=== PATIENT | female | born 1995 | race African-American/Black ===

== ENCOUNTER 2019-04-30 11:10 | Inpatient (IN) ==
[2019-04-30] MEDS ORDERED: ONDANSETRON 4 MG/2 ML VIAL IV PRN (11:41)
[2019-04-30] MEDS ORDERED: MEPERIDINE 25 MG/1 ML VIAL IV PRN (11:41)
[2019-04-30] MEDS: LACTATED RINGERS 1,000 ML IV SCH ×3 (11:50→23:14)
[2019-04-30 12:04] LABS: Basophils % 0.3 % (0.0-0.8); Eosinophils % 0.6 % (0.00-10.9); Hematocrit 34.4 VOL% (35.7-47.0); Hemoglobin 10.3 GM/DL (12.0-16.0); Immature Granulocytes % 0.4 %; Immature Granulocytes Absolute 0.03 #; Lymphocytes # 1.8 10*3/uL (1.4-4.0); Lymphocytes % 26.3 % (21.3-54.2); Mean Corpuscular HGB Conc 29.9 GM/DL (32-36); Mean Platelet Volume 10.7 FL (9.6-12.0); Monocytes % 7.2 % (1.7-12.7); Neutrophils % 65.2 % (38.7-73.9); Platelet Count 287 T/CUMM (130-400); Red Blood Count 3.91 MC/CUMM (3.8-5.5); Red Cell Distribution Width 14.9 % (9.3-17.3)
[2019-04-30] MEDS: OXYTOCIN/LR 20 UNIT/1,000 ML BAG IV SCH (12:21)
[2019-04-30] MEDS: BUTORPHANOL 2 MG/ML VIAL IV PRN ×2 (15:25→18:05)
[2019-04-30] MEDS ORDERED: diphenhydrAMINE 50 MG/1 ML VIAL IV PRN (20:36)
[2019-04-30] MEDS ORDERED: NALOXONE 0.4 MG/ML VIAL IV PRN (20:36)
[2019-04-30] MEDS ORDERED: FAMOTIDINE 20 MG/2 ML VIAL IV ONE (20:36)
[2019-04-30] MEDS ORDERED: CITRIC ACID/SODIUM CITRATE 30 ML UDCUP PO ONE (20:36)
[2019-04-30] MEDS ORDERED: PROMETHAZINE 25 MG/1 ML VIAL IM ONE (20:36)
[2019-04-30] MEDS ORDERED: ePHEDrine 50 MG/ML AMP IV PRN (20:36)
[2019-04-30] MEDS ORDERED: fentaNYL 2 MCG/ROPIV 0.2% EPID 100 ML EPIDURAL ONE (20:43)
[2019-04-30] MEDS ORDERED: fentaNYL 2 MCG/ROPIV 0.2% EPID 100 ML EPIDURAL SCH (21:00)
[2019-04-30 22:40] LABS: Apearance,Urine CLEAR (Clear); Bilirubin,Urine Negative (Negative); Blood, Urine Negative (Negative); Glucose,Urine (UA) Negative (Negative); Hyaline Casts,Urine 1 /LPF (0-3); Ketones,Urine 80 mg/dL (Negative); Mucus,Urine Few /LPF (Occasional); Nitrite,Urine Negative (Negative); Protein,Urine 30 MG/DL; RBC,Urine <1 /HPF (0-4); Urine Color Yellow (Yellow); Urine Specific Gravity 1.021 (1.001-1.035); Urine Urobilinogen < 2.0 EU/DL (0.2-1.0); WBC,Urine 1 /HPF (0-6)
[2019-05-01] MEDS ORDERED: METHYLERGONOVINE 0.2 MG/1 ML AMP ONE (02:46)
[2019-05-01] MEDS ORDERED: miSOPROStol 200 MCG TABLET ONE (02:46)
[2019-05-01] MEDS ORDERED: CARBOPROST TROMETHAMINE 250 MCG/ML AMP IM ONE (02:47)
[2019-05-01] MEDS ORDERED: LIDOCAINE 1% 50 ML VIAL ONE (04:17)
[2019-05-01 05:04] LABS: Cord Arterial Blood HCO3 18.7 MMOL/L
[2019-05-01 05:07] LABS: Cord Venous Blood HCO3 19.9 MMOL/L; Cord Venous Blood PCO2 38.6 MMHG; Cord Venous Blood PO2 22.9
[2019-05-01] MEDS: OXYTOCIN/LR 20 UNIT/1,000 ML BAG IV SCH (06:13)
[2019-05-01] MEDS: IBUPROFEN 800 MG TABLET PO PRN ×2 (09:58→18:32)
[2019-05-01] MEDS: DOCUSATE SODIUM 100 MG CAPSULE PO SCH (20:56)
[2019-05-02 05:07] LABS: Basophils % 0.3 % (0.0-0.8); Eosinophils # 0.1 10*3/uL (0.0-0.87); Eosinophils % 1.2 % (0.00-10.9); Hematocrit 25.7 VOL% (35.7-47.0); Immature Granulocytes % 0.5 %; Immature Granulocytes Absolute 0.04 #; Lymphocytes # 2.1 10*3/uL (1.4-4.0); Lymphocytes % 27.9 % (21.3-54.2); Mean Corpuscular HGB Conc 31.1 GM/DL (32-36); Mean Platelet Volume 10.8 FL (9.6-12.0); Monocytes % 8.6 % (1.7-12.7); Neutrophils % 61.5 % (38.7-73.9); Platelet Count 218 T/CUMM (130-400); Red Blood Count 2.92 MC/CUMM (3.8-5.5); Red Cell Distribution Width 14.8 % (9.3-17.3); White Blood Count 7.5 T/CUMM (4-12)
[2019-05-02] MEDS: IBUPROFEN 800 MG TABLET PO PRN (06:33)
[2019-05-02] MEDS: DOCUSATE SODIUM 100 MG CAPSULE PO SCH (08:38)
[2019-05-02 16:15] VITALS: BP 104/69
== END 2019-05-02 17:15 | disposition home or self-care (01) | DRG 807 ==
LOC: N.LDOUT 11:10 → N.LD 11:12 → N.OB 05-02 01:44
PROVIDERS: ADMIT Obstetrics & Gynecology; ATTEND Obstetrics & Gynecology